=== PATIENT | female | born 1950 | race Caucasian/White ===

== ENCOUNTER → 2021-11-24 14:24 | Outpatient (CLI) | payer MEDICARE, SELFPAY ==
--- NOTE | ~2021-11-24 | MM_ITS ---
EXAMINATION: MM screening noreen BI w mayte HISTORY: Screening mammogram TECHNIQUE: Craniocaudal and mediolateral oblique 3-D tomosynthesis images were obtained and synthetic 2-D images were generated. CAD analysis was submitted and interpreted. COMPARISON: 07/09/2015, 02/14/2012 BREAST PARENCHYMAL COMPOSITION: The breasts are almost entirely fatty. FINDINGS: There is no suspicious mass, calcification, or architectural distortion to suggest malignan cy in either breast. There has been no suspicious interval change. IMPRESSION: 1. No mammographic evidence of malignancy. 2. Recommend routine screening mammography in one year. BI-RADS Category 1: Negative Reviewed, dictated and finalized at location A.
--- NOTE | ~2021-11-24 | DEXA_ITS ---
Bone Density Report Name: JAYDA ROGERS Age: 70 Sex: Female Ethnicity: White Date of : 1950 Indication: postmenopausal; screening for osteoporosis; height loss; asthma or emphysema; hysterectomy; Referring Provider: Vidal Garcia Study: Bone densitometry was performed. Exam Date: November 24, 2021 Accession number: [id number] Bone Density: Region BMD T-score Z-score Classification AP Spine (L1, L2, L3) 1.137 1.1 3.2 Normal Femoral Neck (Left) 0.891 0.4 2.2 Normal Total Hip (Left) 1.070 1.0 2.6 Normal Femoral Neck (Right) 0.924 0.7 2.5 Normal Total Hip (Right) 1.068 1.0 2.6 Normal Total Hip Mean 1.069 1.0 2.6 Normal World Health Organization criteria for BMD impression classify patients as: Normal (T-score at or above -1.0), Osteopenia (T-score between -1.0 and -2.5), or Osteoporosis (T-score at or below -2.5). 10-year Fracture Risk: FRAX not reported because: All T-scores for Spine Total, Hip Total, Femoral Neck at or above -1.0 Previous Exams: Region Exam Age BMD T-score BMD Change BMD Change Date g/cm2 vs Baseline vs Previous AP Spine(L1, L2, L3) 11/24/2021 70 1.137 1.1 0.045* 0.045* 07/06/2015 64 1.092 0.7 Total Hip(Left) 11/24/2021 70 1.070 1.0 -0.013 -0.013 07/06/2015 64 1.083 1.2 Total Hip(Right) 11/24/2021 70 1.068 1.0 0.027 0.027 07/06/2015 64 1.041 0.8 *Denotes significance at 95% confidence level, LSC for AP Spine = 0.022 g/cm2, LSC for Total Hip = 0.027 g/cm2 Clinical Information Provided by Patient: Has used the following medications: Vitamin D Has the following medical conditions: Asthma or Emphysema, Hysterectomy Patient maximum height was 66 Menopause Age: 40 No regular weight bearing exercise Onset of menses at age 15 Number of children 2 Impression: The patient has normal bone mass. No significant bone loss was observed. Discussion: LOW RISK OF FRACTURE; BONE DENSITY IS WELL ABOVE THE MINIMUM DESIRABLE LEVEL AND ABOVE AVERAGE FOR AGE AND SEX AT ALL SKELETAL SITES TESTED. This person's bone density is above expected limits for age and sex. This is rarely clinically significant, but should be pursued if there are significant musculoskeletal complaints. The patient should follow a healthful lifestyle (good nutrition with adequate calcium and vitamin D, and appropriate weight-bearing exercise). Follow-Up: Consider repeating this s
== END ==
PROVIDERS: PCP Internal Medicine; Visit Provider Internal Medicine
DX: Z12.31 Encounter for screening mammogram for malignant neoplasm of breast (principal); Z78.0 Asymptomatic menopausal state
CPT/HCPCS: 77063; 77067; 77080

== ENCOUNTER 2022-08-07 09:30 | Outpatient (RCR) | payer MEDICARE, SELFPAY ==
[2022-08-07 15:46] VITALS: BMI 45.5
[2022-08-07 15:48] VITALS: BMI 45.5
== END 2022-09-27 15:54 | disposition home or self-care (01) ==
LOC: ANHDMC 09:30
PROVIDERS: PCP Internal Medicine; Visit Provider Internal Medicine
DX: E11.65 Type 2 diabetes mellitus with hyperglycemia (principal); Z71.89 Other specified counseling; Z71.3 Dietary counseling and surveillance
CPT/HCPCS: 97802; G0108

== ENCOUNTER 2022-12-07 06:38 | Outpatient (CLI) | payer MEDICARE, SELFPAY ==
--- NOTE | ~2022-12-07 | CT_ITS ---
EXAMINATION: CT abdomen pelvis wo con DATE: 12/07/2022 07:09 INDICATION: Low back pain TECHNIQUE: Computed tomography (CT) of the abdomen and pelvis was performed without intravenous contr ast. The dose-length product was 1584.10 mGy-cm. Automated exposure control and iterative reconstruct ion technique were employed. COMPARISON: 04/06/2016 FINDINGS: No significant pleural or pericardial effusion. Heart size is normal. No significant vascul ar abnormality. No lymphadenopathy. There is a right renal cyst measuring 1.5 cm. There are cholecyst ectomy clips. 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 Small fat-containing umbilic al hernia. Status post hysterectomy. Nonobstructive bowel gas pattern. Small hiatal hernia. Moderate lumbar spondylosis. There is a grade 1 degenerative spondylolisthesis at L4-5 and L5-S1. There is spl enomegaly. IMPRESSION: 1. No acute abdominal abnormality. 2: Splenomegaly. Reviewed, dictated and finalized at location B.
== END 2022-12-07 06:39 | disposition home or self-care (01) ==
PROVIDERS: PCP Internal Medicine; Visit Provider Internal Medicine
DX: M54.50 Low back pain, unspecified (principal); R16.1 Splenomegaly, not elsewhere classified
CPT/HCPCS: 74176